=== PATIENT | male | born 1975 | race Hispanic/Latino ===

== ENCOUNTER → 2016-06-21 | Outpatient (CLI) | payer MEDICARE, MEDICAID ==
[2016-06-21 14:01] LABS: BASOPHILS % (AUTO) 0 % (0-2); EOSINOPHILS % (AUTO) 1 % (0-4); LYMPHOCYTES # (AUTO) 2.2 X10^3; MEAN CORPUSCULAR HEMOGLOBIN 28.8 PG (26.0-34.0); MEAN CORPUSCULAR HGB CONC 33.6 g/dL (31.0-37.0); MEAN CORPUSCULAR VOLUME 86 FL (80-100); MEAN PLATELET VOLUME 10.4 FL (6.0-9.5); MONOCYTES # (AUTO) 0.3 X10^3; MONOCYTES % (AUTO) 5 % (3-11); NEUTROPHILS % (AUTO) 55 % (51-67); PLATELET COUNT 198 10^3uL (150-450); WHITE BLOOD COUNT 5.54 10^3uL (4.0-11.0)
[2016-06-21 14:40] LABS: ALBUMIN 4.1 g/dL (3.4-5.0); ANION GAP 17.6 MEQ/L (3-15); CALCULATED IONIZED CALCIUM 3.8 mg/dL (3.8-4.6); TOTAL PROTEIN 7.9 g/dL (6.4-8.5)
[2016-06-21 19:29] LABS: GGT 113 U/L (12-64)
[2016-06-21 19:33] LABS: Valproic Acid 88 ug/mL (50-100)
== END ==
LOC: LAB 13:35
PROVIDERS: ATTEND Family Medicine
DX: D50.8 Other iron deficiency anemias (principal); R79.89 Other specified abnormal findings of blood chemistry; K71.2 Toxic liver disease with acute hepatitis; E13.65 Other specified diabetes mellitus with hyperglycemia; E03.4 Atrophy of thyroid (acquired); R10.812 Left upper quadrant abdominal tenderness; G40.909 Epilepsy, unspecified, not intractable, without status epilepticus
CPT/HCPCS: 36415; 80053; 80164; 82150; 82977; 83036; 83690; 84436; 84443; 85025

== ENCOUNTER → 2016-06-28 | Outpatient (CLI) | payer MEDICARE, MEDICAID | LOC: RAD 17:05 | PROVIDERS: ATTEND Family Medicine | DX: R10.817 Generalized abdominal tenderness (principal) | CPT/HCPCS: 74000 ==

== ENCOUNTER 2016-07-01 08:21 | Emergency (ER) | payer MEDICARE, MEDICAID ==
[~2016-07-01] VITALS: Ht 172.7 cm; Wt 100.0 kg
[2016-07-01 10:22] VITALS: BP 134/93
== END 2016-07-01 08:57 | disposition home or self-care (01) ==
LOC: ED 08:23
DX: I10 Essential (primary) hypertension (principal)
CPT/HCPCS: 99281; 99282